=== PATIENT | female | born 1985 | race Caucasian/White ===

== ENCOUNTER 2023-02-16 10:06 | Day surgery (SDC) | payer MEDICAID ==
[~2023-02-16] VITALS: Ht 157.5 cm; Wt 61.7 kg
[2023-02-16 11:27] LABS: HCG,QUAL RESULT NEGATIVE (NEGATIVE)
[2023-02-16] MEDS ORDERED: KETOROLAC TROMETHAMINE 30 MG VIAL IVP PRN (11:45)
[2023-02-16] MEDS ORDERED: MEPERIDINE HCL/PF 25 MG/ML DISP.SYRIN IVP PRN (11:45)
[2023-02-16] MEDS ORDERED: METOCLOPRAMIDE HCL 10 MG/2 ML VIAL IVP PRN (11:45)
[2023-02-16] MEDS ORDERED: ONDANSETRON HCL 4 MG/2 ML VIAL IVP PRN (11:45)
[2023-02-16] MEDS ORDERED: LR 1,000 ML IV SCH (11:45)
[2023-02-16] MEDS ORDERED: HYDROmorphone 1 MG/ML INJ. CARTRIDGE IVP PRN (11:45)
[2023-02-16] MEDS ORDERED: BUPIVACAINE /PF 0.5% 30 ML VIAL ONE (11:55)
[2023-02-16] MEDS ORDERED: ROCURONIUM BROMIDE 10 MG/ML (ZEMURON) ONE (11:55)
[2023-02-16] MEDS ORDERED: METOCLOPRAMIDE HCL 10 MG/10 ML UDC ONE (11:55)
[2023-02-16] MEDS ORDERED: SUGAMMADEX SODIUM 200 MG/2 ML VIAL IV ONE (11:55)
[2023-02-16] MEDS ORDERED: WATER FOR IRRIGATION,STERILE 1,000 ML IRRIG.SOLN IR ONE (11:55)
[2023-02-16] MEDS ORDERED: MEPERIDINE HCL/PF 100 MG/ML VIAL ONE (11:55)
[2023-02-16] MEDS ORDERED: fentaNYL CITRATE/PF 100 MCG/2 ML AMP ONE (11:55)
[2023-02-16] MEDS ORDERED: SEVOFLURANE 15 MIN GAS INH ONE (11:55)
[2023-02-16] MEDS ORDERED: PROPOFOL 200MG/ 20ML VIAL (DIPRIVAN) IV ONE (11:55)
[2023-02-16] MEDS ORDERED: SUCCINYLCHOLINE CHLORIDE 20 MG/ML(QUELICIN) ONE (11:55)
[2023-02-16] MEDS ORDERED: DEXAMETHASONE SOD PHOSPHATE 4 MG/ML VIAL ONE (11:55)
[2023-02-16 16:57] VITALS: BP_SYST 110; PULSE 72; RESP 16; TEMP 98.2; O2SAT 100
== END 2023-02-16 14:53 | disposition home or self-care (01) ==
LOC: SDS 10:06 → SMU 10:07 → SDS 14:53
PROVIDERS: ATTEND Obstetrics & Gynecology
DX: Z30.2 Encounter for sterilization (principal)
CPT/HCPCS: 87081; 58670; 84703; J3490 ×2; J8597; J1100; J2704; J0330; J3010; J2175; J7120; C1727